=== PATIENT | female | born 1945 | race Caucasian/White ===

== ENCOUNTER → 2019-02-19 | Outpatient (CLI) | payer MEDICARE | END | disposition home or self-care (01) | LOC: PCVCCLINIC 14:00 | PROVIDERS: ATTEND Internal Medicine | DX: R53.83 Other fatigue (principal); R00.1 Bradycardia, unspecified; I05.9 Rheumatic mitral valve disease, unspecified; I10 Essential (primary) hypertension; E78.5 Hyperlipidemia, unspecified; E11.9 Type 2 diabetes mellitus without complications; Z79.4 Long term (current) use of insulin; Z79.899 Other long term (current) drug therapy; M19.90 Unspecified osteoarthritis, unspecified site; Z82.49 Family history of ischemic heart disease and other diseases of the circulatory system | CPT/HCPCS: 93005; G0463 ==

== ENCOUNTER → 2019-03-08 | Outpatient (CLI) | payer MEDICARE ==
[~2019-03-08] MED LIST: REGADENOSON 0.4 MG/5 ML DISP.SYRIN. IV ONE
--- NOTE | 2019-03-08 13:12 | PCVCIMAG ---
APPROVED REPORT Study performed: 03/08/2019 09:22:35 EXAM: Comprehensive 2D, Doppler, and color-flow Echocardiogram Patient Location: Echo lab Room #: 2Status: routine BSA: 1.82 HR: 55 bpmBP: 150/80 mmHg Rhythm: Bradycardia Other Information Study Quality: Good Risk Factors: Cardiac Risk Factors: Hyperlipidemia, DM Indications Dyspnea Fatigue 2D Dimensions IVSd: 10.95 (7-11mm)LVOT Diam: 19.17 (18-24mm) LVDd: 46.81 mm PWd: 7.91 (7-11mm)Ascending Ao: 28.69 (22-36mm) LVDs: 26.43 (25-40mm) Left Atrium: 46.42 (27-40mm) Aortic Root: 22.69 mm LV Single Plane 4CH: 55.62 % LV Single Plane 2CH: 63.76 % Biplane EF: 59.5 % Volumes Left Atrial Volume (Systole) Single Plane 4CH: 79.52 mLSingle Plane 2CH: 60.21 mL Biplane LA Volume: 70.00 mLLA ESV Index: 39.00 mL/m2 Aortic Valve AoV Peak Mckay.: 1.38 m/s AO Peak Gr.: 7.60 mmHgLVOT Max P.57 mmHg LVOT Max V: 0.80 m/s ADITYA Vmax: 1.68 cm2 Mitral Valve E/A Ratio: 0.9 MV Decel. Time: 222.76 ms MV E Max Mckay.: 0.80 m/s MV A Mckay.: 0.85 m/s IVRT: 103.81 ms TDI E/Lateral E': 7.27E/Medial E': 20.00 Medial E' Mckay.: 0.04 m/s Lateral E' Mckay.: 0.11 m/s Pulmonary Valve PV Peak Mckay.: 0.80 m/sPV Peak Gr.: 2.56 mmHg Pulmonary Vein P Vein S: 0.56 m/sP Vein A: 0.22 m/s P Vein D: 0.53 m/sP Vein A Dur.: 69.2 msec P Vein S/D Ratio: 1.06 Tricuspid Valve TR Peak Mckay.: 1.81 m/s TR Peak Gr.: 13.11 mmHg TV Vmax: 0.53 m/sPA Pressure: 20.00 mmHg Left Ventricle The left ventricle is normal size. There is normal LV segmental wall motion. Mild basal septal hypertrophy is present. Left ventricular systolic function is normal. The left ventricular ejection fraction is within the normal range. LVEF is 55-60%. Findings suggest the left atrial pressure is elevated. Right Ventricle The right ventricle is normal size. The right ventricular systolic function is normal. Atria Left atrium is mildly dilated. Atrial septum is bowed toward the right, consistent with elevated left atrial pressures. The right atrium size is normal. Aortic Valve Aortic valve is trileaflet. The aortic valve is normal in structure and function. No aortic regurgitation is present. There is no aortic valvular stenosis. Mitral Valve The mitral valve is normal in structure. Moderate mitral regurgitation. No evidence of mitral valve stenosis. Tricuspid Valve The tricuspid valve is normal in structure. Trace tricuspid regurgitation with a PA pressure of 20 mmHg. No pulmonary hypertension. Pulmonic Valve The pulmonary valve is normal in structure. There is no pulmonic valvular regurgitation. Great Vessels The aortic root is normal in size. The ascending aorta is normal in size. Aortic arch is normal in caliber. IVC is normal in size and collapses >50% with inspiration. Pericardium There is no pericardial effusion. There is no pleural effusion. <Conclusion> The left ventricle is normal size. LVEF is 55-60%. Left atrium is mildly dilated. Atrial septum is bowed toward the right, consistent with elevated left atrial pressures. Aortic valve is trileaflet. The aortic valve is normal in structure and function. The mitral valve is normal in structure. Moderate mitral regurgitation. The tricuspid valve is normal in structure. Trace tricuspid regurgitation with a PA pressure of 20 mmHg. No pulmonary hypertension. The pulmonary valve is normal in structure. There is no pericardial effusion.
--- NOTE | 2019-03-08 13:21 | PCVCIMAG ---
APPROVED REPORT Imaging Protocol: Rest Tc-99m/Stress Tc-99m 1 day Study performed: 03/08/2019 10:44:31 Indication: Chest pain, Dyspnea, Fatigue Patient Location: Out-Patient Stress Nurse: Gretchen Bravo RN, Jayla Arriaza RN AL Tech:Kathryn KaurSIMONE [email or web address] Ht: 5 ft 5 in Wt: 165 lbs BSA: 1.82 m2 HR: 57 bpm BP: 180/77 mmHg BMI: 27.45 Rhythm: Bradycardia Medical History Medical History: HTN, Hyperlipidemia, Diabetic Insulin Medications: Amlodipine, Carvedilol, Losartan-HCTZ, Atorvastatin Allergies: No known drug allergies Cardiac Risk Factors: Age Pretest Chest Pain Characteristics: No chest pain Exercise History: Indeterminate Resting Data Rest SPECT myocardial perfusion imaging was performed in supine position 45 minutes following the intravenous injection of 9.8 mCi of Tc-99m Sestamibi. Time of rest injection: 1000 Administration Route: IV Administration Site: Right Hand Pharmacologic Stress Pharmacologic stress test was performed by injecting Regadenoson 0.4 mg IV push over 10-15 seconds immediately followed by the intravenous injection of 35.3 mCi of Tc-99m Sestamibi. Time of stress injection: 1115 Date: 03/08/2019 Administration Route: IV Administration Site: Right Hand Gated Stress SPECT was performed 45 minutes after stress injection. The images were gated to evaluate regional wall motion and calculate left ventricular ejection fraction. Stress Test Details Stress Test: Pharmacologic stress testing performed using 0.4 mg of regadenoson per 5 mL given IV over 10 seconds. Reason for pharmacologic stress test: physical limitation. HRMax Heart Rate (APMHR): 148 bpm Resting HR: 57 bpmTarget HR (85% APMHR): 125 bpm Max HR Achieved: 83 bpm % of APMHR: 56 Recovery HR: 68 bpm BP Resting BP: 180/77 mmHg Max BP: 158/72 mmHg Recovery BP: 136/84 mmHg ECG Resting ECG: Sinus Bradycardia Stress ECG: Sinus Rhythm, nonspecific T abnormalities Recovery ECG: Sinus Rhythm Clinical Reason for Termination: Completed protocol Stress Symptoms: Nausea, Emesis, Dyspnea Symptoms resolved with caffeine. Stress ECG Conclusion 1. adequate responsr to iv lexiscan 2. inadequate hr for ecg diagnosis Study Data Post stress, the left ventricular ejection was 66%.. SSS: 0 SRS: 0 SDS: 0 TID = 1.17. Perfusion There is a medium area of moderately reduced uptake in the mid and apical segment of the anterolateral wall which is seen on the stress images and normalizes on the resting images. This area thickens and moves normally and is most consistent with ischemia. Wall Motion Normal left ventricular wall motion. Nuclear Conclusion ECG Findings: non-diagnostic Clinical Findings: negative for ischemia Nuclear Findings: positive for ischemia Exercise Capacity: not assessed Left Ventricular Function: normal 1. intermediate to high risk study based on presence of reversible anterolateral wall defect consistant with inducible ischemia 2. post stress lvef 66% without wall motion abnormalities <Conclusion> 1. adequate responsr to iv lexiscan 2. inadequate hr for ecg diagnosis
== END | disposition home or self-care (01) ==
LOC: PCVCIMAG 09:16
PROVIDERS: ATTEND Internal Medicine
DX: I11.9 Hypertensive heart disease without heart failure (principal); I05.1 Rheumatic mitral insufficiency; E11.9 Type 2 diabetes mellitus without complications; M19.90 Unspecified osteoarthritis, unspecified site; Z82.49 Family history of ischemic heart disease and other diseases of the circulatory system
CPT/HCPCS: 78452; 93017; 93306; A9500; J2785

== ENCOUNTER → 2019-03-26 | Outpatient (CLI) | payer MEDICARE ==
--- NOTE | 2019-03-26 15:29 | PCVCIMAG ---
EXAM: DUPLEX ULTRASOUND OF THE RIGHT GROIN INDICATION: Groin swelling and pain. FINDINGS: No pseudoaneurysm is present. The common femoral artery and vein are patent. No arteriovenous fistula is seen. IMPRESSION: Study is negative for pseudoaneurysm. LOC:[id number]
== END | disposition home or self-care (01) ==
LOC: PCVCIMAG 12:47
PROVIDERS: ATTEND Internal Medicine
DX: R10.31 Right lower quadrant pain (principal); R19.03 Right lower quadrant abdominal swelling, mass and lump; E11.9 Type 2 diabetes mellitus without complications; I10 Essential (primary) hypertension; M19.90 Unspecified osteoarthritis, unspecified site
CPT/HCPCS: 93926